=== PATIENT | male | born 1950 | race Two or more races ===

== ENCOUNTER 2017-08-24 06:55 | Outpatient (CLI) | payer OTHER ==
[~2017-08-24 06:55] MED LIST: ADVIL200 M1 PO; ATENOLOL100 MG PO; ATENOLOL50 MG; AVALIDE 300/12.1 TAB PO; AVAPRO300 MG; Avapro PO; CATAPRES 0.2MG TAB PO; CATAPRES0.2 MG; CATAPRES0.2 MG PO; CLOPIDOGREL BIS75 MG; DOXAZOSIN MESYLA4 MG; ISORDIL PO; ISOSORBIDE DINI20 MG; JANUMET 50-1,1 UDTAB PO; JANUVIA50 MG PO; NORVASC 5MG TAB PO; NORVASC5 MG PO; SULINDAC200 MG; TENORMIN PO
== END 2017-08-24 07:10 | disposition home or self-care (01) ==
LOC: LAB 06:55
DX: Z73.0 Burn-out (principal); E66.8 Other obesity; I10 Essential (primary) hypertension; E11.9 Type 2 diabetes mellitus without complications; Z13.220 Encounter for screening for lipoid disorders; Z12.11 Encounter for screening for malignant neoplasm of colon; Z12.5 Encounter for screening for malignant neoplasm of prostate; Z13.89 Encounter for screening for other disorder

== ENCOUNTER → 2018-01-04 07:24 | Outpatient (CLI) | payer OTHER | END | disposition home or self-care (01) | LOC: LAB 07:24 | DX: D51.0 Vitamin B12 deficiency anemia due to intrinsic factor deficiency (principal); E03.8 Other specified hypothyroidism; A53.9 Syphilis, unspecified ==

== ENCOUNTER 2018-05-04 08:48 | Outpatient (CLI) | payer OTHER | END 2018-05-04 09:02 | disposition home or self-care (01) | LOC: RAD 08:48 | DX: I10 Essential (primary) hypertension (principal); R32 Unspecified urinary incontinence; G89.29 Other chronic pain; M25.562 Pain in left knee; E11.00 Type 2 diabetes mellitus with hyperosmolarity without nonketotic hyperglycemic-hyperosmolar coma (NKHHC); M79.671 Pain in right foot ==

== ENCOUNTER 2018-05-08 07:10 | Outpatient (CLI) | payer OTHER | END 2018-05-08 07:20 | disposition home or self-care (01) | LOC: LAB 07:10 | DX: I10 Essential (primary) hypertension (principal); R32 Unspecified urinary incontinence; G89.29 Other chronic pain; M25.562 Pain in left knee; E11.10 Type 2 diabetes mellitus with ketoacidosis without coma; M79.671 Pain in right foot ==

== ENCOUNTER 2018-05-08 08:01 | Outpatient (CLI) | payer OTHER | END 2018-05-08 14:35 | disposition home or self-care (01) | LOC: SONOGRAMA 08:01 → MAMO-SONO 08:45 → SONOGRAMA 14:35 | DX: M79.672 Pain in left foot (principal) ==

== ENCOUNTER 2018-06-05 14:48 | Outpatient (CLI) | payer OTHER | END 2018-06-05 14:59 | disposition home or self-care (01) | LOC: TOM 14:48 | DX: Z86.73 Personal history of transient ischemic attack (TIA), and cerebral infarction without residual deficits (principal) ==

== ENCOUNTER 2018-07-25 07:18 | Outpatient (CLI) | payer OTHER | END 2018-07-25 16:19 | disposition home or self-care (01) | LOC: LAB 07:18 | DX: E11.22 Type 2 diabetes mellitus with diabetic chronic kidney disease (principal); E78.2 Mixed hyperlipidemia; I12.9 Hypertensive chronic kidney disease with stage 1 through stage 4 chronic kidney disease, or unspecified chronic kidney disease; N18.3 Chronic kidney disease, stage 3 (moderate) ==

== ENCOUNTER 2018-08-20 15:31 | Emergency (ER) | payer OTHER ==
[~2018-08-20] VITALS: Ht 175.3 cm; Wt 104.3 kg
[2018-08-20] MEDS ORDERED: LASIX20 MG (16:19)
[2018-08-20] MEDS ORDERED: VALSARTAN320 MG (16:19)
[2018-08-20] MEDS ORDERED: CARDURA8 MG (16:19)
[2018-08-20] MEDS ORDERED: ASA81 MG (16:20)
[2018-08-20] MEDS ORDERED: CLOPIDOGREL300 MG PO (16:20)
== END 2018-08-20 22:08 | disposition home or self-care (01) ==
LOC: ER
DX: G45.9 Transient cerebral ischemic attack, unspecified (principal)

== ENCOUNTER 2018-09-14 07:40 | Outpatient (CLI) | payer OTHER ==
[~2018-09-14 07:40] MED LIST changes: +ASA81 MG; +CARDURA8 MG; +CLOPIDOGREL300 MG PO; +LASIX20 MG; +VALSARTAN320 MG
== END 2018-09-14 08:02 | disposition home or self-care (01) ==
LOC: LAB 07:40
DX: Z76.0 Encounter for issue of repeat prescription (principal); I10 Essential (primary) hypertension; E11.9 Type 2 diabetes mellitus without complications; E66.8 Other obesity; Z12.11 Encounter for screening for malignant neoplasm of colon; Z12.5 Encounter for screening for malignant neoplasm of prostate

== ENCOUNTER 2018-09-21 07:45 | Outpatient (CLI) | payer OTHER | END 2018-09-21 07:54 | disposition home or self-care (01) | LOC: LAB 07:45 | DX: E11.69 Type 2 diabetes mellitus with other specified complication (principal); I10 Essential (primary) hypertension; Z12.11 Encounter for screening for malignant neoplasm of colon ==

== ENCOUNTER 2018-10-20 15:56 | Emergency (ER) | payer OTHER ==
[~2018-10-20] VITALS: Ht 152.4 cm; Wt 119.7 kg
[2018-10-20] MEDS ORDERED: JANUMET 50-1,01 EACH (16:19)
[2018-10-20] MEDS ORDERED: CATAPRES0.2 MG (16:21)
== END 2018-10-20 20:54 | disposition home or self-care (01) ==
LOC: ER 15:56
DX: R42 Dizziness and giddiness (principal)

== ENCOUNTER → 2018-11-15 07:10 | Outpatient (CLI) | payer OTHER ==
[~2018-11-15 07:10] MED LIST changes: +JANUMET 50-1,01 EACH
== END | disposition home or self-care (01) ==
LOC: LAB 07:10
DX: N18.3 Chronic kidney disease, stage 3 (moderate) (principal); I12.9 Hypertensive chronic kidney disease with stage 1 through stage 4 chronic kidney disease, or unspecified chronic kidney disease; E79.0 Hyperuricemia without signs of inflammatory arthritis and tophaceous disease

== ENCOUNTER → 2019-01-14 07:09 | Outpatient (CLI) | payer OTHER ==
[~2019-01-14 07:09] MED LIST changes: +BAYER THERAPY325 MG; +ISOSORBIDE DINI30 MG
== END | disposition home or self-care (01) ==
LOC: LAB 07:09
DX: K59.09 Other constipation (principal); R19.5 Other fecal abnormalities; E11.65 Type 2 diabetes mellitus with hyperglycemia

== ENCOUNTER 2019-01-14 12:35 | Emergency (ER) | payer OTHER ==
[~2019-01-14] VITALS: Ht 172.7 cm; Wt 115.2 kg
[~2019-01-14 12:35] MED LIST changes: -BAYER THERAPY325 MG; -ISOSORBIDE DINI30 MG
[2019-01-14] MEDS ORDERED: ISOSORBIDE DINI30 MG (13:44)
[2019-01-14] MEDS ORDERED: BAYER THERAPY325 MG (13:44)
[2019-01-14] MEDS ORDERED: CLOPIDOGREL BIS75 MG (13:45)
== END 2019-01-14 19:30 | disposition home or self-care (01) ==
LOC: ER 12:35
DX: K92.1 Melena (principal)

== ENCOUNTER 2019-03-22 10:10 | Outpatient (CLI) | payer OTHER ==
[~2019-03-22 10:10] MED LIST changes: +BAYER THERAPY325 MG; +ISOSORBIDE DINI30 MG
== END 2019-03-22 10:36 | disposition home or self-care (01) ==
LOC: LAB 10:10
DX: R05 Cough (principal); R53.81 Other malaise

== ENCOUNTER 2019-04-06 10:48 | Emergency (ER) | payer OTHER ==
[~2019-04-06] VITALS: Ht 172.7 cm; Wt 68.5 kg
[2019-04-06] MEDS ORDERED: DIOVAN320 MG (10:54)
[2019-04-06] MEDS ORDERED: CARDURA8 MG (10:54)
[2019-04-06] MEDS ORDERED: ISOSORBIDE DINI20 MG (10:54)
[2019-04-06] MEDS ORDERED: JANUMET 50-1,01 EACH (10:55)
[2019-04-06] MEDS ORDERED: PLAVIX75 MG (10:55)
[2019-04-06] MEDS ORDERED: KAPVAY0.1 MG (10:55)
[2019-04-06] MEDS ORDERED: ECOTRIN325 M1 (10:55)
== END 2019-04-06 18:40 | disposition home or self-care (01) ==
LOC: ER 10:48
DX: I10 Essential (primary) hypertension (principal)

== ENCOUNTER → 2019-12-17 07:22 | Outpatient (CLI) | payer OTHER ==
[~2019-12-17 07:22] MED LIST changes: +DIOVAN320 MG; +ECOTRIN325 M1; +KAPVAY0.1 MG; +PLAVIX75 MG
== END | disposition home or self-care (01) ==
LOC: LAB 07:22
PROVIDERS: ATTEND General Practice
DX: M79.671 Pain in right foot (principal); E11.9 Type 2 diabetes mellitus without complications; D69.49 Other primary thrombocytopenia; Z76.0 Encounter for issue of repeat prescription

== ENCOUNTER 2020-02-20 08:14 | Outpatient (CLI) | payer OTHER | END 2020-02-20 08:36 | disposition home or self-care (01) | LOC: SONOGRAMA 08:14 | PROVIDERS: ATTEND General Practice | DX: E07.89 Other specified disorders of thyroid (principal); E04.1 Nontoxic single thyroid nodule; M54.2 Cervicalgia; G89.29 Other chronic pain ==

== ENCOUNTER 2020-04-09 10:42 | Outpatient (CLI) | payer OTHER | END 2020-04-09 10:54 | disposition home or self-care (01) | LOC: SONOGRAMA 10:42 | PROVIDERS: ATTEND Pathology Anatomic Pathology & Clinical Pathology | DX: E04.1 Nontoxic single thyroid nodule (principal) ==

== ENCOUNTER → 2020-07-09 06:54 | Outpatient (CLI) | payer OTHER | END | disposition home or self-care (01) | LOC: LAB 06:54 | PROVIDERS: ATTEND General Practice | DX: Z12.5 Encounter for screening for malignant neoplasm of prostate (principal); D69.6 Thrombocytopenia, unspecified; E11.8 Type 2 diabetes mellitus with unspecified complications; Z13.89 Encounter for screening for other disorder; Z13.220 Encounter for screening for lipoid disorders ==

== ENCOUNTER → 2020-07-13 07:27 | Outpatient (CLI) | payer OTHER | END | disposition home or self-care (01) | LOC: LAB 07:27 | PROVIDERS: ATTEND General Practice | DX: Z12.11 Encounter for screening for malignant neoplasm of colon (principal); Z12.5 Encounter for screening for malignant neoplasm of prostate; D69.6 Thrombocytopenia, unspecified; E11.8 Type 2 diabetes mellitus with unspecified complications; Z13.89 Encounter for screening for other disorder ==

== ENCOUNTER 2020-11-26 06:34 | Outpatient (CLI) | payer OTHER | END 2020-11-26 06:35 | disposition home or self-care (01) | LOC: LAB 06:34 | PROVIDERS: ATTEND Specialist/Technologist, Other Nephrology | DX: N39.0 Urinary tract infection, site not specified (principal); N18.1 Chronic kidney disease, stage 1 ==

== ENCOUNTER 2021-02-27 11:45 | Emergency (ER) | payer OTHER ==
[~2021-02-27] VITALS: Ht 175.3 cm; Wt 104.3 kg
== END 2021-02-27 18:37 | disposition home or self-care (01) ==
LOC: ER 11:45
DX: J32.0 Chronic maxillary sinusitis (principal); K82.3 Fistula of gallbladder; K56.699 Other intestinal obstruction unspecified as to partial versus complete obstruction; I95.9 Hypotension, unspecified; E11.29 Type 2 diabetes mellitus with other diabetic kidney complication; K80.20 Calculus of gallbladder without cholecystitis without obstruction; K56.3 Gallstone ileus; S86.002A Unspecified injury of left Achilles tendon, initial encounter; X58.XXXA Exposure to other specified factors, initial encounter; Y92.89 Other specified places as the place of occurrence of the external cause; Z79.84 Long term (current) use of oral hypoglycemic drugs; E66.8 Other obesity

== ENCOUNTER 2021-03-08 07:01 | Outpatient (CLI) | payer OTHER | END 2021-03-08 07:18 | disposition home or self-care (01) | LOC: LAB 07:01 | PROVIDERS: ATTEND Specialist/Technologist, Other Nephrology | DX: N18.1 Chronic kidney disease, stage 1 (principal); I12.9 Hypertensive chronic kidney disease with stage 1 through stage 4 chronic kidney disease, or unspecified chronic kidney disease ==

== ENCOUNTER 2021-03-10 06:59 | Outpatient (CLI) | payer OTHER | END 2021-03-10 07:00 | disposition home or self-care (01) | LOC: LAB 06:59 | PROVIDERS: ATTEND Specialist/Technologist, Other Nephrology | DX: N18.1 Chronic kidney disease, stage 1 (principal) ==

== ENCOUNTER 2021-05-03 07:33 | Outpatient (CLI) | payer OTHER | END 2021-05-04 14:42 | disposition home or self-care (01) | LOC: MRI 07:33 | PROVIDERS: ATTEND Psychiatry & Neurology Neurology | DX: G45.8 Other transient cerebral ischemic attacks and related syndromes (principal); I67.4 Hypertensive encephalopathy | CPT/HCPCS: 70544; 70551 ==

== ENCOUNTER → 2021-08-30 06:24 | Outpatient (CLI) | payer OTHER | END | disposition home or self-care (01) | LOC: LAB 06:24 | PROVIDERS: ATTEND General Practice | DX: I10 Essential (primary) hypertension (principal); E11.8 Type 2 diabetes mellitus with unspecified complications; Z12.5 Encounter for screening for malignant neoplasm of prostate; Z12.11 Encounter for screening for malignant neoplasm of colon; Z11.3 Encounter for screening for infections with a predominantly sexual mode of transmission; L62 Nail disorders in diseases classified elsewhere ==

== ENCOUNTER 2021-09-01 06:44 | Outpatient (CLI) | payer OTHER | END 2021-09-01 06:57 | disposition home or self-care (01) | LOC: LAB 06:44 | PROVIDERS: ATTEND General Practice | DX: Z12.5 Encounter for screening for malignant neoplasm of prostate (principal); I10 Essential (primary) hypertension; E11.8 Type 2 diabetes mellitus with unspecified complications ==

== ENCOUNTER 2021-09-07 07:24 | Outpatient (CLI) | payer OTHER | END 2021-09-07 07:34 | disposition home or self-care (01) | LOC: LAB 07:24 | PROVIDERS: ATTEND General Practice | DX: I10 Essential (primary) hypertension (principal); E11.8 Type 2 diabetes mellitus with unspecified complications; R80.9 Proteinuria, unspecified ==

== ENCOUNTER 2021-11-01 12:30 | Emergency (ER) | payer OTHER ==
[~2021-11-01] VITALS: Ht 175.3 cm; Wt 104.3 kg
== END 2021-11-01 16:02 | disposition home or self-care (01) ==
LOC: ER 12:30
DX: I10 Essential (primary) hypertension (principal); R51.9 Headache, unspecified; E03.9 Hypothyroidism, unspecified

== ENCOUNTER → 2021-12-16 06:18 | Outpatient (CLI) | payer OTHER | END | disposition home or self-care (01) | LOC: LAB 06:18 | PROVIDERS: ATTEND Specialist/Technologist, Other Nephrology | DX: N18.2 Chronic kidney disease, stage 2 (mild) (principal); I12.9 Hypertensive chronic kidney disease with stage 1 through stage 4 chronic kidney disease, or unspecified chronic kidney disease ==

== ENCOUNTER 2021-12-20 06:13 | Outpatient (CLI) | payer OTHER | END 2021-12-20 06:14 | disposition home or self-care (01) | LOC: LAB 06:13 | PROVIDERS: ATTEND Specialist/Technologist, Other Nephrology | DX: N18.2 Chronic kidney disease, stage 2 (mild) (principal); I12.9 Hypertensive chronic kidney disease with stage 1 through stage 4 chronic kidney disease, or unspecified chronic kidney disease ==

== ENCOUNTER → 2022-03-28 06:11 | Outpatient (CLI) | payer OTHER | END | disposition home or self-care (01) | LOC: LAB 06:11 | PROVIDERS: ATTEND Specialist/Technologist, Other Nephrology | DX: N18.1 Chronic kidney disease, stage 1 (principal); I12.9 Hypertensive chronic kidney disease with stage 1 through stage 4 chronic kidney disease, or unspecified chronic kidney disease ==

== ENCOUNTER 2022-03-30 06:25 | Outpatient (CLI) | payer OTHER | END 2022-03-30 06:26 | disposition home or self-care (01) | LOC: LAB 06:25 | PROVIDERS: ATTEND Specialist/Technologist, Other Nephrology | DX: N18.1 Chronic kidney disease, stage 1 (principal); Z12.9 Encounter for screening for malignant neoplasm, site unspecified ==

== ENCOUNTER 2022-07-19 07:22 | Outpatient (CLI) | payer OTHER | END 2022-07-19 07:29 | disposition home or self-care (01) | LOC: LAB 07:22 | PROVIDERS: ATTEND Specialist/Technologist, Other Nephrology | DX: Z12.9 Encounter for screening for malignant neoplasm, site unspecified (principal); N18.1 Chronic kidney disease, stage 1 ==

== ENCOUNTER 2022-07-25 06:13 | Outpatient (CLI) | payer OTHER | END 2022-07-25 06:24 | disposition home or self-care (01) | LOC: LAB 06:13 | PROVIDERS: ATTEND Specialist/Technologist, Other Nephrology | DX: N18.1 Chronic kidney disease, stage 1 (principal); Z12.9 Encounter for screening for malignant neoplasm, site unspecified ==

== ENCOUNTER 2022-10-17 06:47 | Outpatient (CLI) | payer OTHER | END 2022-10-17 06:48 | disposition home or self-care (01) | LOC: LAB 06:47 | PROVIDERS: ATTEND Specialist/Technologist, Other Nephrology | DX: I12.9 Hypertensive chronic kidney disease with stage 1 through stage 4 chronic kidney disease, or unspecified chronic kidney disease (principal); N18.1 Chronic kidney disease, stage 1 ==

== ENCOUNTER 2023-03-09 06:13 | Outpatient (CLI) | payer OTHER ==
[~2023-03-09 06:13] MED LIST changes: +DICLOFENAC POTA50 MG PO
[2023-03-09 07:08] LABS: PH,URINE 5.5 (5.0-8.0); URINE APPEARANCE Clear; URINE BILIRRUBIN Negative (NEGATIVE); URINE BLOOD Small; URINE COLOR Yellow; URINE GLUCOSE Negative (NEGATIVE); URINE LEUKOCYTE Moderate; URINE NITRATE Negative; URINE PROTEIN Negative (NEGATIVE); URINE UROBILINOGEN 0.2 E.U./dl
[2023-03-09 07:28] LABS: URINE EPITHELIAL CELLS 26.1 uL (0.0-38.8); URINE RBC 4.8 uL (0.0-20.8); URINE WBC 484.6 uL (0.0-23.2)
[2023-03-09 07:54] LABS: URINE BACTERIA > 9821.5 uL (0.0-1933)
[2023-03-09 08:05] LABS: ALBUMIN 3.5 gm/dL (3.4-5.0); CALCIUM 8.8 mg/dL (8.5-10.1); CREATININE SERUM 1.27 mg/dL (0.70-1.30); GFR 55.74; PHOSPHOROUS 3.1 mg/dL (2.5-4.9); POTASSIUM 4.37 mEq/L (3.5-5.1)
== END 2023-03-09 06:14 | disposition home or self-care (01) ==
LOC: LAB 06:13
PROVIDERS: ATTEND Specialist/Technologist, Other Nephrology
DX: I12.9 Hypertensive chronic kidney disease with stage 1 through stage 4 chronic kidney disease, or unspecified chronic kidney disease (principal); N18.1 Chronic kidney disease, stage 1

== ENCOUNTER → 2023-03-14 06:08 | Outpatient (CLI) | payer OTHER ==
[2023-03-14 07:45] LABS: CREATININE URINE 75.3 MG/DL; URINE PROT QUANT 24HR 18.4 MG/DL
[2023-03-14 07:47] LABS: URINE PROT QUANT 24 HR 381.8 MG/24HR (42-225)
[2023-03-14 07:48] LABS: CREATINE CLEARANCE 90.6 ML/MIN (97-137); CREATININE SERUM 1.2 mg/dL (0.8-1.3)
== END | disposition home or self-care (01) ==
LOC: LAB 06:08
PROVIDERS: ATTEND Specialist/Technologist, Other Nephrology
DX: I12.9 Hypertensive chronic kidney disease with stage 1 through stage 4 chronic kidney disease, or unspecified chronic kidney disease (principal); N18.1 Chronic kidney disease, stage 1

== ENCOUNTER 2023-06-21 06:10 | Outpatient (CLI) | payer OTHER ==
[2023-06-21 07:25] LABS: HEMATOCRIT 37.6 % (39.0-48.0); HEMOGLOBIN 12.8 g/dL (13-16.00); MEAN CELL VOLUME 87.3 fL (80.0-100.00); MEAN CORPUSCULAR HEMOGLOBIN 29.6 pg (27.00-32.0); PLATELET COUNT 166 K/uL (150-450); RED CELL DISTRIBUTION WIDTH 13.8 % (11.5-14.5)
[2023-06-21 07:33] LABS: PH,URINE 5.5 (5.0-8.0); URINE APPEARANCE Clear; URINE BILIRRUBIN Negative (NEGATIVE); URINE BLOOD Moderate; URINE COLOR Yellow; URINE GLUCOSE Negative (NEGATIVE); URINE LEUKOCYTE Large; URINE NITRATE Negative; URINE PROTEIN Negative (NEGATIVE); URINE UROBILINOGEN 0.2 E.U./dl
[2023-06-21 07:34] LABS: URINE EPITHELIAL CELLS 4.4 uL (0.0-38.8); URINE RBC 64.3 uL (0.0-20.8); URINE WBC 515.2 uL (0.0-23.2)
[2023-06-21 08:13] LABS: URINE BACTERIA > 9821.5 uL (0.0-1933)
[2023-06-21 08:14] LABS: ALBUMIN 3.6 gm/dL (3.4-5.0); BILIRUBIN TOTAL 0.78 mg/dL (0.3-1.2); CALCIUM 9.1 mg/dL (8.5-10.1); CHOL HDL RATIO 2.2 (0-5.0); CREATININE SERUM 1.29 mg/dL (0.70-1.30); GFR 54.75; GLOBULINA 3.6 G/DL (2.4-3.5); POTASSIUM 4.55 mEq/L (3.5-5.1); PROSTATIC SPECIFIC ANTIGEN 1.1 NG/ML (0.010-4.00); TOTAL PROTEIN 7.2 gm/dL (6.4-8.2); TSH 2.03 uIU/mL (0.358-3.74)
[2023-06-21 08:16] LABS: CREATININE URINE RANDOM 78.6 MG/DL (30-125)
[2023-06-22 09:08] LABS: % FREE PSA 26.7 % (.); free psa 0.24 ng/mL; total psa 0.9 ng/mL (0.0-4.0)
== END 2023-06-21 06:11 | disposition home or self-care (01) ==
LOC: LAB 06:10
PROVIDERS: ATTEND General Practice
DX: Z76.0 Encounter for issue of repeat prescription (principal); E11.8 Type 2 diabetes mellitus with unspecified complications; I10 Essential (primary) hypertension; N39.9 Disorder of urinary system, unspecified; E66.9 Obesity, unspecified; Z12.5 Encounter for screening for malignant neoplasm of prostate; Z12.11 Encounter for screening for malignant neoplasm of colon

== ENCOUNTER 2023-11-23 06:15 | Outpatient (CLI) | payer OTHER ==
[2023-11-23 07:01] LABS: HEMOGLOBIN 12.5 g/dL (13-16.00); MEAN CELL VOLUME 87.6 fL (80.0-100.00); MEAN CORPUSCULAR HEMOGLOBIN 29.5 pg (27.00-32.0); MEAN CORPUSCULAR HGB CONC 33.7 g/dl (32.0-36.0); PLATELET COUNT 159 K/uL (150-450); RED BLOOD COUNT 4.23 M/uL (4.00-6.00); RED CELL DISTRIBUTION WIDTH 14.2 % (11.5-14.5)
[2023-11-23 07:13] LABS: PH,URINE 5.5 (5.0-8.0); URINE APPEARANCE Clear; URINE BILIRRUBIN Negative (NEGATIVE); URINE BLOOD Trace; URINE COLOR Yellow; URINE GLUCOSE Negative (NEGATIVE); URINE KETONE Negative (NEGATIVE); URINE LEUKOCYTE Moderate; URINE NITRATE Negative; URINE PROTEIN Negative (NEGATIVE); URINE UROBILINOGEN 0.2 E.U./dl
[2023-11-23 07:15] LABS: URINE EPITHELIAL CELLS 8.8 uL (0.0-38.8); URINE RBC 8.8 uL (0.0-20.8); URINE WBC 312.7 uL (0.0-23.2)
[2023-11-23 07:28] LABS: URINE BACTERIA > 9821.5 uL (0.0-1933); URINE CAST 0.15 uL (0.0-1.40)
[2023-11-23 08:17] LABS: ALBUMIN 3.7 gm/dL (3.4-5.0); CALCIUM 8.9 mg/dL (8.5-10.1); CREATININE SERUM 1.18 mg/dL (0.70-1.30); GFR 60.51; PHOSPHOROUS 2.7 mg/dL (2.5-4.9); POTASSIUM 4.23 mEq/L (3.5-5.1)
[2023-11-25 09:45] LABS: CREATININE URINE 71.8 MG/DL; URINE PROT QUANT 24 HR 310.2 MG/24HR (42-225); URINE PROT QUANT 24HR 18.8 MG/DL
[2023-11-25 09:50] LABS: CREATINE CLEARANCE 74.9 ML/MIN (97-137); CREATININE SERUM 1.1 mg/dL (0.8-1.3)
== END 2023-11-23 06:16 | disposition home or self-care (01) ==
LOC: LAB 06:15
DX: N18.1 Chronic kidney disease, stage 1 (principal); Z12.9 Encounter for screening for malignant neoplasm, site unspecified

== ENCOUNTER → 2024-01-20 | Emergency (ER) | payer OTHER ==
[~2024-01-20] VITALS: Ht 175.3 cm; Wt 108.9 kg
[~2024-01-20] MED LIST changes: +ALDACTONE25 MG PO; +MICARDIS80 MG PO
== END | disposition left against medical advice (07) ==
LOC: ER 09:22
DX: Z53.21 Procedure and treatment not carried out due to patient leaving prior to being seen by health care provider (principal)

== ENCOUNTER 2024-03-11 06:04 | Outpatient (CLI) | payer OTHER ==
[2024-03-11 06:49] LABS: HEMATOCRIT 37.9 % (39.0-48.0); MEAN CELL VOLUME 86.7 fL (80.0-100.00); MEAN CORPUSCULAR HEMOGLOBIN 29.7 pg (27.00-32.0); MEAN CORPUSCULAR HGB CONC 34.2 g/dl (32.0-36.0); PLATELET COUNT 179 K/uL (150-450); RED BLOOD COUNT 4.37 M/uL (4.00-6.00); RED CELL DISTRIBUTION WIDTH 13.8 % (11.5-14.5)
[2024-03-11 06:56] LABS: PH,URINE 5.5 (5.0-8.0); URINE APPEARANCE Cloudy; URINE BILIRRUBIN Negative (NEGATIVE); URINE BLOOD Small; URINE COLOR Yellow; URINE GLUCOSE Negative (NEGATIVE); URINE KETONE Negative (NEGATIVE); URINE LEUKOCYTE Large; URINE NITRATE Negative; URINE PROTEIN Negative (NEGATIVE); URINE UROBILINOGEN 0.2 E.U./dl
[2024-03-11 06:57] LABS: URINE RBC 12.2 uL (0.0-20.8); URINE WBC 689.6 uL (0.0-23.2)
[2024-03-11 07:16] LABS: URINE BACTERIA > 9821.5 uL (0.0-1933); URINE CAST 1.03 uL (0.0-1.40)
[2024-03-11 07:51] LABS: ALBUMIN 3.7 gm/dL (3.4-5.0); CREATININE SERUM 1.18 mg/dL (0.70-1.30); GFR 60.51; PHOSPHOROUS 3.2 mg/dL (2.5-4.9); POTASSIUM 4.45 mEq/L (3.5-5.1)
== END 2024-03-11 06:15 | disposition home or self-care (01) ==
LOC: LAB 06:04
PROVIDERS: ATTEND Specialist/Technologist, Other Nephrology
DX: N18.2 Chronic kidney disease, stage 2 (mild) (principal); I12.9 Hypertensive chronic kidney disease with stage 1 through stage 4 chronic kidney disease, or unspecified chronic kidney disease

== ENCOUNTER 2024-03-28 08:41 | Outpatient (CLI) | payer OTHER | END 2024-03-28 08:51 | disposition home or self-care (01) | LOC: RAD 08:41 | PROVIDERS: ATTEND General Practice | DX: G89.11 Acute pain due to trauma (principal); M25.561 Pain in right knee; R60.0 Localized edema; M25.532 Pain in left wrist ==

== ENCOUNTER → 2024-06-20 07:47 | Outpatient (CLI) | payer OTHER ==
[2024-06-20 08:42] LABS: PH,URINE 5.5 (5.0-8.0); URINE APPEARANCE Cloudy; URINE BILIRRUBIN Negative (NEGATIVE); URINE BLOOD Small; URINE COLOR Yellow; URINE GLUCOSE Negative (NEGATIVE); URINE KETONE Negative (NEGATIVE); URINE LEUKOCYTE Large; URINE NITRATE Positive; URINE PROTEIN 30 (NEGATIVE); URINE UROBILINOGEN 0.2 E.U./dl
[2024-06-20 08:44] LABS: URINE EPITHELIAL CELLS 7.2 uL (0.0-38.8); URINE RBC 9.1 uL (0.0-20.8); URINE WBC 1462.6 uL (0.0-23.2)
[2024-06-20 08:45] LABS: HEMOGLOBIN 12.8 g/dL (13-16.00); MEAN CELL VOLUME 87.3 fL (80.0-100.00); MEAN CORPUSCULAR HEMOGLOBIN 29.4 pg (27.00-32.0); MEAN CORPUSCULAR HGB CONC 33.7 g/dl (32.0-36.0); RED BLOOD COUNT 4.35 M/uL (4.00-6.00); RED CELL DISTRIBUTION WIDTH 14.3 % (11.5-14.5)
[2024-06-20 08:46] LABS: PLATELET COUNT 166 K/uL (150-450)
[2024-06-20 09:22] LABS: URINE BACTERIA > 9821.5 uL (0.0-1933); URINE CAST 0.14 uL (0.0-1.40)
[2024-06-20 09:28] LABS: ALBUMIN 3.8 gm/dL (3.4-5.0); BILIRUBIN TOTAL 0.87 mg/dL (0.3-1.2); CALCIUM 9.2 mg/dL (8.5-10.1); CHOL HDL RATIO 1.9 (0-5.0); CREATININE SERUM 1.26 mg/dL (0.70-1.30); GFR 56.1; GLOBULINA 3.6 G/DL (2.4-3.5); POTASSIUM 4.67 mEq/L (3.5-5.1); PROSTATIC SPECIFIC ANTIGEN 0.93 NG/ML (0.010-4.00); TOTAL PROTEIN 7.4 gm/dL (6.4-8.2); TSH 0.895 uIU/mL (0.358-3.74)
[2024-06-21 09:07] LABS: % FREE PSA 35.6 % (.); free psa 0.32 ng/mL; total psa 0.9 ng/mL (0.0-4.0)
== END | disposition home or self-care (01) ==
LOC: LAB 07:47
PROVIDERS: ATTEND General Practice
DX: M54.50 Low back pain, unspecified (principal); E11.8 Type 2 diabetes mellitus with unspecified complications; Z13.1 Encounter for screening for diabetes mellitus; Z13.228 Encounter for screening for other metabolic disorders; Z12.11 Encounter for screening for malignant neoplasm of colon; Z12.5 Encounter for screening for malignant neoplasm of prostate; I10 Essential (primary) hypertension

== ENCOUNTER 2024-06-20 08:23 | Outpatient (CLI) | payer OTHER | END 2024-06-20 08:36 | disposition home or self-care (01) | LOC: RAD 08:23 | PROVIDERS: ATTEND General Practice | DX: M54.50 Low back pain, unspecified (principal); E11.8 Type 2 diabetes mellitus with unspecified complications ==

== ENCOUNTER 2024-07-01 09:41 | Outpatient (CLI) | payer OTHER | END 2024-07-01 09:52 | disposition home or self-care (01) | LOC: SONOGRAMA 09:41 | PROVIDERS: ATTEND General Practice | DX: N39.0 Urinary tract infection, site not specified (principal); N39.9 Disorder of urinary system, unspecified; R35.0 Frequency of micturition; E11.8 Type 2 diabetes mellitus with unspecified complications ==

== ENCOUNTER → 2024-07-15 06:05 | Outpatient (CLI) | payer OTHER ==
[2024-07-15 07:58] LABS: PH,URINE 5.5 (5.0-8.0); URINE APPEARANCE Clear; URINE BILIRRUBIN Negative (NEGATIVE); URINE BLOOD Trace; URINE COLOR Yellow; URINE GLUCOSE Negative (NEGATIVE); URINE KETONE Negative (NEGATIVE); URINE LEUKOCYTE Negative; URINE NITRATE Negative; URINE PROTEIN Negative (NEGATIVE); URINE UROBILINOGEN 0.2 E.U./dl
[2024-07-15 08:00] LABS: URINE BACTERIA 7.3 uL (0.0-1933); URINE EPITHELIAL CELLS 1.8 uL (0.0-38.8); URINE RBC 4.1 uL (0.0-20.8)
[2024-07-15 08:22] LABS: URINE CAST 0.29 uL (0.0-1.40); URINE WBC 1.1 uL (0.0-23.2)
== END | disposition home or self-care (01) ==
LOC: LAB 06:05
PROVIDERS: ATTEND Urology
DX: N41.9 Inflammatory disease of prostate, unspecified (principal)

== ENCOUNTER 2024-08-29 06:15 | Outpatient (CLI) | payer OTHER ==
[2024-08-29 06:54] LABS: URINE APPEARANCE Clear; URINE BILIRRUBIN Negative (NEGATIVE); URINE BLOOD Trace; URINE COLOR Yellow; URINE GLUCOSE Negative (NEGATIVE); URINE KETONE Negative (NEGATIVE); URINE LEUKOCYTE Trace; URINE NITRATE Negative; URINE PROTEIN Negative (NEGATIVE); URINE UROBILINOGEN 0.2 E.U./dl
[2024-08-29 06:55] LABS: URINE EPITHELIAL CELLS 9.9 uL (0.0-38.8); URINE RBC 2.5 uL (0.0-20.8); URINE WBC 3.4 uL (0.0-23.2)
[2024-08-29 07:02] LABS: URINE CAST 0.44 uL (0.0-1.40)
[2024-08-29 07:08] LABS: BASO % 1.2 % (0.1-1.2); EOS # 0.15 (0.04-0.54); EOS % 2.2 % (0.7-7.0); HEMATOCRIT 36.6 % (40.1-51.0); HEMOGLOBIN 12.3 g/dL (13.7-17.5); LYMPH # 1.01 (1.18-3.74); LYMPH % 14.9 % (19.3-53.1); MEAN CORPUSCULAR HEMOGLOBIN 28.5 pg (25.6-32.2); MONO # 0.59 (0.24-0.82); MONO % 8.7 % (4.7-12.5); NEUT # 4.94 (1.56-6.13); NEUT % 72.7 % (34.0-71.1); PLATELET COUNT 176 K/uL (163-369); RED BLOOD COUNT 4.32 M/uL (4.63-6.08); RED CELL DISTRIBUTION WIDTH 13.5 % (11.6-14.4)
[2024-08-29 07:37] LABS: ALBUMIN 3.6 gm/dL (3.4-5.0); CALCIUM 8.8 mg/dL (8.5-10.1); CREATININE SERUM 1.33 mg/dL (0.70-1.30); GFR 52.7; PHOSPHOROUS 3.6 mg/dL (2.5-4.9)
== END 2024-08-29 06:16 | disposition home or self-care (01) ==
LOC: LAB 06:15
PROVIDERS: ATTEND Specialist/Technologist, Other Nephrology
DX: N18.1 Chronic kidney disease, stage 1 (principal); I12.9 Hypertensive chronic kidney disease with stage 1 through stage 4 chronic kidney disease, or unspecified chronic kidney disease

== ENCOUNTER 2024-08-29 07:15 | Outpatient (CLI) | payer OTHER | END 2024-08-29 07:16 | disposition home or self-care (01) | LOC: SONOGRAMA 07:15 | PROVIDERS: ATTEND Specialist/Technologist, Other Nephrology | DX: N18.1 Chronic kidney disease, stage 1 (principal); I12.9 Hypertensive chronic kidney disease with stage 1 through stage 4 chronic kidney disease, or unspecified chronic kidney disease ==

== ENCOUNTER → 2024-11-13 06:52 | Outpatient (CLI) | payer OTHER ==
[2024-11-13 07:35] LABS: URINE APPEARANCE Clear; URINE BILIRRUBIN Negative (NEGATIVE); URINE BLOOD Negative; URINE COLOR Yellow; URINE GLUCOSE Negative (NEGATIVE); URINE KETONE Negative (NEGATIVE); URINE LEUKOCYTE Trace; URINE NITRATE Negative; URINE PROTEIN Negative (NEGATIVE); URINE UROBILINOGEN 0.2 E.U./dl
[2024-11-13 07:39] LABS: URINE BACTERIA 38.3 uL (0.0-1933); URINE EPITHELIAL CELLS 6.6 uL (0.0-38.8); URINE RBC 6.5 uL (0.0-20.8); URINE WBC 16.4 uL (0.0-23.2)
[2024-11-13 07:43] LABS: BASO % 0.8 % (0.1-1.2); EOS # 0.17 (0.04-0.54); EOS % 2.2 % (0.7-7.0); LYMPH # 1.27 (1.18-3.74); LYMPH % 16.4 % (19.3-53.1); MEAN PLATELET VOLUME 10.70 fl (9.4-12.4); MONO # 0.53 (0.24-0.82); MONO % 6.8 % (4.7-12.5); NEUT # 5.70 (1.56-6.13); NEUT % 73.7 % (34.0-71.1); RED CELL DISTRIBUTION WIDTH 13.4 % (11.6-14.4)
[2024-11-13 07:53] LABS: URINE CAST 0.14 uL (0.0-1.40)
[2024-11-13 07:54] LABS: BUN CREA RATIO 11.0 (7.0-25.0); CREATININE SERUM 1.19 mg/dL (0.70-1.30); GFR 59.76; GLUCOSE FASTING 106.0 mg/dL (65-100); OSMOLALITY SERUM 287.0 MOSM/KG (275-295)
== END | disposition home or self-care (01) ==
LOC: LAB 06:52
PROVIDERS: ATTEND Specialist/Technologist, Other Nephrology
DX: N18.30 Chronic kidney disease, stage 3 unspecified (principal); I12.9 Hypertensive chronic kidney disease with stage 1 through stage 4 chronic kidney disease, or unspecified chronic kidney disease

== ENCOUNTER → 2025-01-24 | Outpatient (CLI) | payer OTHER ==
[2025-01-24 07:08] LABS: URINE APPEARANCE Clear; URINE BILIRRUBIN Negative (NEGATIVE); URINE BLOOD Negative; URINE COLOR Yellow; URINE GLUCOSE Negative (NEGATIVE); URINE KETONE Negative (NEGATIVE); URINE LEUKOCYTE Negative; URINE NITRATE Negative; URINE PROTEIN Negative (NEGATIVE); URINE UROBILINOGEN 1.0 E.U./dl
[2025-01-24 07:12] LABS: URINE BACTERIA 34.8 uL (0.0-1933); URINE EPITHELIAL CELLS 6.1 uL (0.0-38.8); URINE RBC 3.5 uL (0.0-20.8); URINE WBC 4.2 uL (0.0-23.2)
[2025-01-24 07:15] LABS: URINE CAST 0.00 uL (0.0-1.40)
[2025-01-24 07:22] LABS: BASO % 0.7 % (0.1-1.2); EOS # 0.10 (0.04-0.54); EOS % 1.5 % (0.7-7.0); LYMPH # 1.53 (1.18-3.74); LYMPH % 22.2 % (19.3-53.1); MEAN PLATELET VOLUME 11.10 fl (9.4-12.4); MONO # 0.50 (0.24-0.82); MONO % 7.3 % (4.7-12.5); NEUT # 4.69 (1.56-6.13); NEUT % 68.2 % (34.0-71.1); RED CELL DISTRIBUTION WIDTH 13.3 % (11.6-14.4)
[2025-01-24 08:18] LABS: ALT/SGPT 23.0 U/L (12-78); AST/SGOT 17.0 U/L (15-37); BILIRUBIN TOTAL 0.9 mg/dL (0.3-1.2); BUN CREA RATIO 13.0 (7.0-25.0); CREATININE SERUM 1.66 mg/dL (0.70-1.30); GFR 40.7; GLOBULINA 3.1 G/DL (2.4-3.5); GLUCOSE FASTING 93.0 mg/dL (65-100); OSMOLALITY SERUM 290.0 MOSM/KG (275-295)
== END | disposition home or self-care (01) ==
LOC: LAB 06:07
PROVIDERS: ATTEND General Practice
DX: R19.7 Diarrhea, unspecified (principal)

== ENCOUNTER 2025-01-27 06:15 | Outpatient (CLI) | payer OTHER | END 2025-01-27 06:16 | disposition home or self-care (01) | LOC: LAB 06:15 | PROVIDERS: ATTEND General Practice | DX: R19.7 Diarrhea, unspecified (principal) ==

== ENCOUNTER → 2025-01-30 06:14 | Outpatient (CLI) | payer OTHER ==
[2025-01-30 07:43] LABS: BASO % 0.5 % (0.1-1.2); EOS # 0.08 (0.04-0.54); EOS % 1.4 % (0.7-7.0); LYMPH # 1.06 (1.18-3.74); LYMPH % 18.2 % (19.3-53.1); MEAN PLATELET VOLUME 10.80 fl (9.4-12.4); MONO # 0.38 (0.24-0.82); MONO % 6.5 % (4.7-12.5); NEUT # 4.28 (1.56-6.13); NEUT % 73.2 % (34.0-71.1); RED CELL DISTRIBUTION WIDTH 12.9 % (11.6-14.4)
[2025-01-30 08:30] LABS: ALT/SGPT 24.0 U/L (12-78); AST/SGOT 17.0 U/L (15-37); BILIRUBIN TOTAL 0.87 mg/dL (0.3-1.2); BUN CREA RATIO 14.0 (7.0-25.0); CREATININE SERUM 1.27 mg/dL (0.70-1.30); FE 55.0 ug/dl (65-175); GFR 55.44; GLOBULINA 3.3 G/DL (2.4-3.5); GLUCOSE FASTING 98.0 mg/dL (65-100); OSMOLALITY SERUM 289.0 MOSM/KG (275-295)
[2025-01-30 11:22] LABS: FOLIC ACID > 20.00 ng/ml (4.78-20)
== END | disposition home or self-care (01) ==
LOC: LAB 06:14
PROVIDERS: ATTEND General Practice
DX: D64.9 Anemia, unspecified (principal); R71.8 Other abnormality of red blood cells; E11.8 Type 2 diabetes mellitus with unspecified complications; I10 Essential (primary) hypertension